=== PATIENT | female | born 1995 | race Caucasian/White ===

== ENCOUNTER 2020-12-18 06:02 | Emergency (ER) | payer OTHER ==
[~2020-12-18] VITALS: Ht 162.6 cm; Wt 64.9 kg
[2020-12-18 06:15] VITALS: BP 113/93
--- NOTE | 2020-12-18 06:15 | NUR ---
PT MARTINA C/O L EARACHE STARTING 0540 +H/A, L SIDED KIANA, NO MEDS TAKEN
[2020-12-18] MEDS ORDERED: NEOM10DR11 OT (06:30)
[2020-12-18] MEDS ORDERED: HYDR-4275 PO (06:30)
[2020-12-18] MEDS ORDERED: AMOX-430 PO (06:30)
== END 2020-12-18 06:40 | disposition home or self-care (01) ==
LOC: ER 06:06
DX: H66.92 Otitis media, unspecified, left ear (principal); Z79.899 Other long term (current) drug therapy

== ENCOUNTER 2021-12-03 04:46 | Emergency (ER) | payer OTHER ==
[~2021-12-03] VITALS: Ht 162.6 cm; Wt 56.7 kg
[~2021-12-03 04:46] MED LIST: AMOX-430 PO; HYDR-4275 PO; NEOM10DR11 OT
[2021-12-03 05:19] VITALS: BP 116/69
[2021-12-03] MEDS ORDERED: IBUPROFEN 600 MG TABLET ONE ×2 (05:28→05:37)
[2021-12-03] MEDS ORDERED: IBUPROFEN 600 MG TABLET PO ONE (05:30)
[2021-12-03] MEDS ORDERED: IBUP-1955 PO (06:30)
--- NOTE | 2021-12-03 06:36 | NUR ---
Patient discharged to home in stable condition. Written and verbal after care instructions given. Patient verbalizes understanding of instruction.
== END 2021-12-03 06:38 | disposition home or self-care (01) ==
LOC: ER 04:52
DX: S62.324A Displaced fracture of shaft of fourth metacarpal bone, right hand, initial encounter for closed fracture (principal); Z60.2 Problems related to living alone; Z79.899 Other long term (current) drug therapy; W22.8XXA Striking against or struck by other objects, initial encounter; Y93.89 Activity, other specified; Y92.89 Other specified places as the place of occurrence of the external cause; Y99.8 Other external cause status
CPT/HCPCS: 73130-TC